=== PATIENT | female | born 1965 | race Caucasian/White ===

== ENCOUNTER 2023-10-25 08:50 | Emergency (ER) | payer MEDICAID ==
[~2023-10-25] VITALS: Ht 167.6 cm; Wt 60.0 kg
[2023-10-25 09:07] VITALS: O2SAT 98
[2023-10-25] MEDS: KETOROLAC 30MG/ML VIAL IM ONE (09:30)
[2023-10-25] MEDS ORDERED: KETO10TA2 MT (10:15)
[2023-10-25 10:35] VITALS: BP 123/64; PULSE 68; RESP 19; TEMP 36.83628; O2SAT 99
== END 2023-10-25 10:35 | disposition home or self-care (01) ==
LOC: ER 08:55
DX: M25.532 Pain in left wrist (principal); I10 Essential (primary) hypertension; E03.9 Hypothyroidism, unspecified
CPT/HCPCS: 81025; 73110; 29125; 96372; 99283; J1885; Z7610